=== PATIENT | male | born 1965 | race Two or more races ===

== ENCOUNTER 2018-11-13 17:25 | Emergency (ER) | payer OTHER, SELFPAY ==
[~2018-11-13] VITALS: Ht 165.1 cm; Wt 65.0 kg
[2018-11-13 17:35] VITALS: BP 118/69
== END 2018-11-13 22:36 | disposition left against medical advice (07) ==
LOC: ER 17:25
DX: Z53.21 Procedure and treatment not carried out due to patient leaving prior to being seen by health care provider (principal)